=== PATIENT | male | born 1965 ===

== ENCOUNTER 2020-04-06 08:17 | Emergency (ER) | payer SELFPAY ==
[2020-04-06 08:30] VITALS: BP 118/81
[2020-04-06] MEDS ORDERED: AZITHROMYCIN 250 MG TAB PO ONE (09:38)
[2020-04-06] MEDS ORDERED: LIDOCAINE-MPF (1%) 10 MG/1 ML VIAL 5 ML INFILTRATI ONE (09:38)
--- NOTE | 2020-04-06 09:42 | Emergency Department Report ---
ED Male HPI - General Chief complaint: Upper Respiratory Infection Stated complaint: COUGH Time Seen by Provider: 04/06/20 09:38 Source: patient Mode of arrival: Ambulatory Limitations: No Limitations - History of Present Illness Initial comments: Chief complaint: "I really want STD testing." HPI: This is a 54-year-old healthy male without significant past medical history who presents with purulent discharge from his penis for the past week. He had unprotected sex within the last week and a half. He suspect STD exposure. He denies abdominal pain. Denies back pain. In triage he stated that he had fever cough headache. He suspects COVID-19 infection. The symptoms are mild. He is awaiting results for COVID-19 testing from the local health department. He currently is symptom-free in this regard. MD Complaint: penile discharge -: Gradual, week(s) (1) Location: penis Severity: mild Quality: burning Improves with: none Worsens with: urination other (Fever cough headache) - Related Data Previous Rx's Medication Instructions Recorded Last Taken Type DOXYCYCLINE Hyclate [Vibramycin 100 mg PO Q12HR 7 Days #14 capsule 04/06/20 Unknown Rx CAP] Allergies Allergy/AdvReac Type Severity Reaction Status Date / Time chloroquine Allergy Itching Verified 04/06/20 08:27 ED Review of Systems ROS: Stated complaint: COUGH Other details as noted in HPI Comment: All other systems reviewed and negative Constitutional: fever. denies: malaise Respiratory: cough Genitourinary: discharge Neurological: headache ED Past Medical Hx - Past Medical History Previous Medical History?: No - Surgical History Past Surgical History?: Yes Additional Surgical History: left rotator cuff repair - Social History Smoking Status: Current Every Day Smoker Substance Use Type: None - Medications Home Medications: Home Medications Medication Instructions Recorded Confirmed Last Taken Type DOXYCYCLINE Hyclate [Vibramycin 100 mg PO Q12HR 7 Days #14 capsule 04/06/20 Unknown Rx CAP] ED Physical Exam - General Limitations: No Limitations General appearance: alert, in no apparent distress - Head Head exam: Present: atraumatic, normocephalic - Eye Eye exam: Present: normal appearance - ENT ENT exam: Present: mucous membranes moist - Neck Neck exam: Present: normal inspection, full ROM - Respiratory Respiratory exam: Present: normal lung sounds bilaterally. Absent: respiratory distress, wheezes, rales, rhonchi - Cardiovascular Cardiovascular Exam: Present: regular rate, normal rhythm, normal heart sounds. Absent: systolic murmur, diastolic murmur, rubs, gallop - GI/Abdominal GI/Abdominal exam: Present: soft, normal bowel sounds. Absent: distended, tenderness, guarding, rebound - Rectal Rectal exam: Present: deferred - Extremities Exam Extremities exam: Present: normal inspection - Neurological Exam Neurological exam: Present: alert, oriented X3 - Psychiatric Psychiatric exam: Present: normal affect, normal mood - Skin Skin exam: Present: warm, dry, intact, normal color. Absent: rash ED Course Vital Signs 04/06/20 08:27 Temperature 97.9 F Pulse Rate 80 Respiratory 18 Rate Blood Pressure 118/81 [Right] O2 Sat by Pulse 96 Oximetry ED Medical Decision Making - Radiology Data Radiology results: report reviewed, image reviewed Chest radiograph revealed mild patchy bibasilar airspace disease: - Medical Decision Making 1. Urethritis: Patient was treated for gonorrhea chlamydia with ceftriaxone and azithromycin. I recommended outpatient STI testing at local health department 2. Suspected COVID-19 infection: Chest x-ray obtained in emergency department according to triage protocol revealed mild atypical pneumonia findings. Doxycycline prescription provided. Patient appears well nontoxic. Critical care attestation.: If time is entered above; I have spent that time in minutes in the direct care of this critically ill patient, excluding procedure time. ED Disposition Clinical Impression: Urethritis, Suspected COVID-19 virus infection, Atypical pneumonia Disposition: DC-01 TO HOME OR SELFCARE Is pt being admited?: No Does the pt Need Aspirin: No Condition: Stable Instructions: COVID-19, Urethritis, Adult Prescriptions: DOXYCYCLINE Hyclate [Vibramycin CAP] 100 mg PO Q12HR 7 Days #14 capsule Referrals: PRIMARY CARE, [Primary Care Provider] - 3-5 Days Forms: STI Treatment and Prevention
--- NOTE | 2020-04-06 10:02 | XRay Report ---
CHEST 2 VIEWS INDICATION / CLINICAL INFORMATION: cough. COMPARISON: None available. FINDINGS: SUPPORT DEVICES: None. HEART / MEDIASTINUM: No significant abnormality. LUNGS / PLEURA: Mild patchy bibasilar opacities. No significant effusion. No pneumothorax. ADDITIONAL FINDINGS: No significant additional findings. IMPRESSION: 1. Mild patchy bibasilar airspace disease. Findings could represent pneumonia (possibly atypical/jose e l), edema, or aspiration. Recommend clinical correlation and continued follow-up until resolution. Signer Name: Rolf Garcia MD Signed: 04/06/2020 9:58 AM Workstation Name: [id number]
== END 2020-04-06 10:12 | disposition home or self-care (01) ==
LOC: ED 08:17
DX: N34.2 Other urethritis (principal); J18.8 Other pneumonia, unspecified organism; Z20.828 Contact with and (suspected) exposure to other viral communicable diseases; F17.200 Nicotine dependence, unspecified, uncomplicated; Z79.899 Other long term (current) drug therapy; Z88.8 Allergy status to other drugs, medicaments and biological substances
CPT/HCPCS: 71046; 96372; 99283; J0696